=== PATIENT | male | born 2005 | race Caucasian/White ===

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

== ENCOUNTER 2023-09-14 11:40 | Emergency (ER) | payer MEDICAID, SELFPAY ==
[2023-09-14 11:41] VITALS: BP 113/72; PULSE 86; RESP 16; TEMP 36.3; O2SAT 99; BMI 28.6
--- NOTE | 2023-09-14 11:51 | EDS_ITS ---
HPI <NICOLE Walsh - Last Filed: 09/14/23 11:52> History of Present Illness Chief Complaint: General Illness Narrative Narrative: 18-year-old male has about 4 days of bodyaches. Initially he felt like he had a fever and he had 2 episodes of diarrhea but this resolved. He has a runny nose and slight cough. 3 days ago he noticed a white lesion on the bottom of his tongue. He has no difficulty swallowing or breathing. He takes no medications. He tried a THC gummy last night for the body aches but it did not help. PFSH <NICOLE Walsh - Last Filed: 09/14/23 11:52> [facility] Medical History ADHD (attention deficit hyperactivity disorder) Home Medications naproxen 500 mg tablet (Naprosyn) 500 mg PO BID PRN pain #10 tabs 12/25/22 [Rx Last Taken Unknown] Allergy/AdvReac Type Severity Reaction Status Date / Time No Known Allergies Allergy Verified 09/14/23 11:41 Social History Smoking Status: Current some day smoker tobacco type: cigarettes alcohol intake: never substance use type: does not use what type of physical activity do you participate in: none ROS <NICOLE Walsh - Last Filed: 09/14/23 11:52> ROS ED ROS Narrative Constitutional: Positive for fever, chills, malaise. ENT: Positive for rhinorrhea. CVS: Negative for chest pain. Respiratory: Positive for cough. Negative for shortness of breath. GI: Positive for diarrhea. Negative for abdominal pain, nausea, vomiting. Neuro: Negative for headache. EXAM <NICOLE Walsh Last Filed: 09/14/23 11:52> Physical Exam Narrative Exam Narrative: CONST: Patient sitting in no acute distress. EYES: Normal inspection. ENT: Moist mucous membranes, normal posterior oropharynx, no trismus or tongue elevation. Nickel sized white plaque lesion on the right bottom side of the tongue. NECK: Normal inspection. RESP: No respiratory distress, CTAB. CVS: Regular rate and rhythm, no murmur, no gallop. SKIN: Color normal, no rash, warm, dry, intact. EXTREMITIES: Normal appearance, no pedal edema. NEURO: Alert and answering questions appropriately. PSYCH: Normal affect. Const Vital Signs: 09/14/23 11:41 09/14/23 11:48 Temperature 97.4 F L Temperature Source Temporal Pulse Rate 86 Respiratory Rate 16 Respiratory Pattern Normal Blood Pressure 113/72 Blood Pressure Mean 85 Pulse Ox 99 Oxygen Delivery Method Room Air <Dr. Ezekiel Galvan MD - Last Filed: 09/14/23 12:09> Physical Exam Const Vital Signs: 09/14/23 11:41 09/14/23 11:48 Temperature 97.4 F L Temperature Source Temporal Pulse Rate 86 Respiratory Rate 16 Respiratory Pattern Normal Blood Pressure 113/72 Blood Pressure Mean 85 Pulse Ox 99 Oxygen Delivery Method Room Air MDM <Dr. Ezekiel Galvan MD - Last Filed: 09/14/23 12:09> MDM MDM Narrative Medical decision making narrative: I have personally performed a face to face assessment of the patient and have reviewed the JEREMY Note. I performed a substantive portion of the visit including all aspects of the following. My gibson findings include: History is 18-year-old male not feeling well last several days. Diarrhea. No fever or vomiting. No abdominal pain. No known exposure. Patient does smoke and says he is also a sore underneath his tongue. That developed the last several days. No past medical history. Currently on no medications. Exam is [well-appearing 18-year-old vital signs stable afebrile. Pulse ox 99% room air no hypoxia. H EENT exam moist mucous membranes. Posterior pharynx unremarkable. There is a dime sized lesion or growth on the posterior aspect of his tongue. This may be a viral reaction. There is no bleeding. He has no lymphadenopathy. Neck nontender. Lungs clear. Heart regular rhythm no murmur. Abdomen soft nontender. Back nontender. Skin unremarkable. No petechiae or purpura. No rashes. Moving all 4 extremities. Nontender no edema. Neurologically is awake and alert with no focal motor deficits.] Medical Decision Making [18-year-old suspect viral syndrome. He has not been vomiting he does need IV fluids or labs. He did want a flu testing so he was swabbed. He will be written for off work today. Hydrogen peroxide or Gly-Oxide for his mouth lesion if that does not go completely away needs to have it followed up with ENT which we discussed.] Other additions or changes: [None] Discharge Plan Triage Chief Complaint: General Illness ED Midlevel Provider: Tasha Nicole ED Provider: Ezekiel Galvan Dx/Rx/DC Orders Prescriptions: No Action naproxen [Naprosyn] 500 mg tablet 500 mg PO BID PRN (Reason: pain) Qty: 10 0RF Primary Care Provider: Beni Dodge Referrals: Beni Dodge DO [Primary Care Provider] -
[2023-09-14] MEDS: Ibuprofen 600 MG Tablet PO (12:00)
[2023-09-14 12:14] VITALS: BP 111/77; PULSE 97; RESP 16; TEMP 36.6; O2SAT 98
== END 2023-09-14 13:18 | disposition home or self-care (01) ==
PROVIDERS: Emergency Provider Emergency Medicine; PCP Pediatrics; Visit Provider Emergency Medicine
DX: R05.9 Cough, unspecified (principal); R19.7 Diarrhea, unspecified; F17.210 Nicotine dependence, cigarettes, uncomplicated
CPT/HCPCS: 87631; 99282